=== PATIENT | female | born 1990 | race Caucasian/White ===

== ENCOUNTER 2019-09-13 03:52 | Inpatient (IN) ==
[2019-09-13] MEDS ORDERED: Metoclopramide 10 MG/2 ML VIAL IVP PRN (04:14)
[2019-09-13] MEDS ORDERED: miSOPROStoL 25 MCG TABLET PO PRN (04:14)
[2019-09-13] MEDS ORDERED: Famotidine 20 MG/2 ML VIAL IVP PRN (04:14)
[2019-09-13] MEDS ORDERED: Naloxone 0.4 MG/ML INJ IVP PRN (04:14)
[2019-09-13 04:45] LABS: Basophils % 0.2 %; Eosinophils # 0.2 K/mcL (0.0-0.6); Eosinophils % 1.5 %; Hematocrit 33.4 % (35.3-44.9); Hemoglobin 10.6 g/dL (11.5-15.4); Immature Granulocytes % 0.5 % (0-4); Lymphocytes # 3.8 K/mcL (0.6-4.6); Lymphocytes % 33.4 %; Mean Corpuscular HGB Conc 31.7 g/dL (31.6-35.5); Mean Corpuscular Hemoglobin 26.8 pg (28.0-33.3); Mean Corpuscular Volume 84.6 fL (83.0-100.0); Mean Platelet Volume 12.2 fL (9.4-12.4); Monocytes % 8.6 %; Neutrophils # 6.3 K/mcL (1.6-8.9); Platelet Count 248 K/mcL (140-400); Red Blood Count 3.95 M/mcL (3.82-4.97); Red Cell Distribution Width 15.2 % (11.5-14.5); Segmented Neutrophils % 55.8 %; White Blood Count 11.3 K/mcL (4.3-11.1)
[2019-09-13 04:54] LABS: Amphetamine Screen,Urine Negative ng/mL (Cutoff=1000); Barbiturate Screen,Urine Negative ng/mL (Cutoff=200); Benzodiazepines Screen,Urine Negative ng/mL (Cutoff=200); Cannabinoid Screen,Urine Negative ng/mL (Cutoff = 50); Cocaine Screen,Urine Negative ng/mL (Cutoff= 300); Opiate Screen,Urine Negative ng/mL (Cutoff=300); Phencyclidine Screen,Urine Negative ng/mL (Cutoff=25)
[2019-09-13] MEDS ORDERED: *HR* FentaNYL (PF) 100 MCG/2 ML VIAL IVP PRN (07:59)
[2019-09-13] MEDS ORDERED: Oxytocin 20 units/ LR 1000 mL 20 UNIT/1,000 ML BAG IVC SCH ×2 (08:00→22:39)
[2019-09-13] MEDS: Ringers Solution, Lactated 1,000 ML IVC SCH ×2 (08:24→23:03)
[2019-09-13] MEDS ORDERED: *HR* FentaNYL (PF) 100 MCG/2 ML VIAL EP ONE (09:10)
[2019-09-13] MEDS ORDERED: EPHEDrine 50 MG/ML VIAL IVP PRN (09:10)
[2019-09-13] MEDS ORDERED: Bupivacaine-MPF 0.25% 10 ML VIAL EP ONE (09:10)
[2019-09-13] MEDS ORDERED: *HR* FentaNYL (PF) 100 MCG/2 ML VIAL ONE (09:13)
[2019-09-13] MEDS ORDERED: Bupivacaine-MPF 0.25% 10 ML VIAL ONE (09:13)
[2019-09-13] MEDS: Epidural Premix (fent/bupiv) 110 ML EP SCH ×2 (09:45→16:33)
[2019-09-13] MEDS ORDERED: Ondansetron 4 MG/2 ML VIAL IVP PRN (10:10)
[2019-09-13] MEDS ORDERED: Lanolin 7 G OINT...G. TP PRN (22:39)
[2019-09-13] MEDS ORDERED: Measles/Mumps/Rubella Vacc 0.5 ML VIAL SQ PRN (22:39)
[2019-09-13] MEDS ORDERED: Benzocaine/Menthol 56 GM AEROSOL SPRAY TP PRN (22:39)
[2019-09-13] MEDS: Ibuprofen 600 MG TABLET PO PRN (23:04)
[2019-09-14] MEDS: Acetaminophen 325 MG TABLET PO PRN ×3 (00:06→13:02)
[2019-09-14 06:36] LABS: Basophils % 0.1 %; Eosinophils % 0.2 %; Hematocrit 27.9 % (35.3-44.9); Immature Granulocytes % 0.6 % (0-4); Lymphocytes # 3.4 K/mcL (0.6-4.6); Lymphocytes % 15.5 %; Mean Corpuscular HGB Conc 31.9 g/dL (31.6-35.5); Mean Corpuscular Hemoglobin 27.5 pg (28.0-33.3); Mean Corpuscular Volume 86.1 fL (83.0-100.0); Mean Platelet Volume 11.8 fL (9.4-12.4); Monocytes # 1.4 K/mcL (0.0-1.3); Monocytes % 6.3 %; Neutrophils # 16.9 K/mcL (1.6-8.9); Platelet Count 217 K/mcL (140-400); Red Blood Count 3.24 M/mcL (3.82-4.97); Red Cell Distribution Width 15.2 % (11.5-14.5); Segmented Neutrophils % 77.3 %
[2019-09-14 06:37] LABS: Hemoglobin 8.9 g/dL (11.5-15.4); White Blood Count 21.9 K/mcL (4.3-11.1)
[2019-09-14] MEDS: Ibuprofen 600 MG TABLET PO PRN (07:44)
[2019-09-14 07:59] VITALS: BP 107/66
[2019-09-14] MEDS ORDERED: Prenatal Vit/FA 1 EACH TABLET PO SCH (09:00)
== END 2019-09-14 18:55 | disposition home or self-care (01) | DRG 806 ==
LOC: 1NENULAB 03:52 → 1NENUOBS 23:01
PROVIDERS: ADMIT Obstetrics & Gynecology; ATTEND Obstetrics & Gynecology

== ENCOUNTER → 2021-05-13 23:35 | Observation (INO) | END | disposition home or self-care (01) | LOC: 1NENULAB | PROVIDERS: ADMIT Obstetrics & Gynecology; ATTEND Obstetrics & Gynecology ==

== ENCOUNTER 2021-05-18 05:53 | Inpatient (IN) ==
[~2021-05-18 05:53] MED LIST: Azithromycin 500 MG in 0.9 % Sodium Chloride 250 ML IVPB PRN; EPHEDrine 50 MG/ML VIAL IVP PRN; Epidural Premix (fent/bupiv) 110 ML EP SCH; Famotidine 20 MG/2 ML VIAL IVP PRN; Metoclopramide 10 MG/2 ML VIAL IVP PRN; Naloxone 0.4 MG/ML INJ IVP PRN; Ringers Solution, Lactated 1,000 ML IVC SCH
[2021-05-18] MEDS ORDERED: Ondansetron 4 MG/2 ML VIAL IVP PRN (06:00)
[2021-05-18] MEDS ORDERED: Oxytocin 20 units/ LR 1000 mL 20 UNIT/1,000 ML BAG IVC SCH ×2 (06:00→16:39)
[2021-05-18 06:33] LABS: Basophils % 0.3 %; Eosinophils # 0.1 K/mcL (0.0-0.6); Hematocrit 38.5 % (35.3-44.9); Hemoglobin 12.8 g/dL (11.5-15.4); Immature Granulocytes % 0.6 % (0-4); Lymphocytes # 4.3 K/mcL (0.6-4.6); Lymphocytes % 32.4 %; Mean Corpuscular HGB Conc 33.2 g/dL (31.6-35.5); Mean Corpuscular Hemoglobin 28.3 pg (28.0-33.3); Mean Platelet Volume 11.5 fL (9.4-12.4); Monocytes # 1.1 K/mcL (0.0-1.3); Monocytes % 8.4 %; Neutrophils # 7.7 K/mcL (1.6-8.9); Platelet Count 145 K/mcL (140-400); Red Blood Count 4.53 M/mcL (3.82-4.97); Red Cell Distribution Width 17.1 % (11.5-14.5); Segmented Neutrophils % 57.3 %; White Blood Count 13.4 K/mcL (4.3-11.1)
[2021-05-18 07:07] LABS: Influenza A PCR Negative (Negative); Influenza B PCR Negative (Negative); Resp. Syncytial Virus PCR Negative (Negative)
[2021-05-18 07:08] LABS: SARS-CoV-2 by PCR (In House) Negative (Negative)
[2021-05-18] MEDS ORDERED: EPHEDrine 50 MG/ML VIAL ONE (10:08)
[2021-05-18] MEDS ORDERED: miSOPROStoL 100 MCG TABLET RC ONE (11:17)
[2021-05-18 15:10] LABS: Amphetamine Screen,Urine Negative ng/mL (Cutoff=1000); Barbiturate Screen,Urine Negative ng/mL (Cutoff=200); Benzodiazepines Screen,Urine Negative ng/mL (Cutoff=200); Cannabinoid Screen,Urine Negative ng/mL (Cutoff = 50); Cocaine Screen,Urine Negative ng/mL (Cutoff= 300); Opiate Screen,Urine Negative ng/mL (Cutoff=300); Phencyclidine Screen,Urine Negative ng/mL (Cutoff=25)
[2021-05-18] MEDS ORDERED: Ondansetron ODT 4 MG TAB.RAPDIS SL PRN (16:39)
[2021-05-18] MEDS ORDERED: Lanolin 7 G OINT...G. TP PRN (16:39)
[2021-05-18] MEDS ORDERED: Benzocaine/Menthol 56 GM AEROSOL SPRAY TP PRN (16:39)
[2021-05-18] MEDS: Acetaminophen 325 MG TABLET PO SCH (17:49)
[2021-05-18] MEDS: Ibuprofen 600 MG TABLET PO SCH (19:35)
[2021-05-18] MEDS: *HR* OxyCODONE Immed Rel 5 MG TABLET PO PRN (19:36)
[2021-05-19] MEDS: Acetaminophen 325 MG TABLET PO SCH ×2 (01:07→08:19)
[2021-05-19] MEDS: Ibuprofen 600 MG TABLET PO SCH ×2 (03:25→08:33)
[2021-05-19 03:40] LABS: Hematocrit 30.6 % (35.3-44.9); Mean Corpuscular HGB Conc 33.3 g/dL (31.6-35.5); Mean Corpuscular Hemoglobin 28.3 pg (28.0-33.3); Mean Platelet Volume 11.9 fL (9.4-12.4); Platelet Count 143 K/mcL (140-400); White Blood Count 15.2 K/mcL (4.3-11.1)
[2021-05-19 03:45] LABS: Hemoglobin 10.2 g/dL (11.5-15.4)
[2021-05-19 04:02] LABS: Eosinophils # 0.6 K/mcL (0.0-0.6); Lymphocytes # 4.3 K/mcL (0.6-4.6); Monocytes # 0.3 K/mcL (0.0-1.3); Reactive Lymphocytes Present (Not Present)
[2021-05-19 04:03] LABS: Platelet Estimate Normal (Normal)
[2021-05-19] MEDS: *HR* OxyCODONE Immed Rel 5 MG TABLET PO PRN ×2 (05:38→09:34)
[2021-05-19 07:39] VITALS: BP 108/73; PULSE 80; TEMP 97.8; O2SAT 97
[2021-05-19] MEDS ORDERED: Prenatal Vit/FA 1 EACH TABLET PO SCH (09:00)
== END 2021-05-19 11:18 | disposition home or self-care (01) | DRG 805 ==
LOC: 1NENULAB → 1NENUOBS 17:11
PROVIDERS: ADMIT Obstetrics & Gynecology; ATTEND Obstetrics & Gynecology